=== PATIENT | male | born 1945 | race Caucasian/White ===

== ENCOUNTER → 2020-08-31 | Outpatient (CLI) | payer MEDICARE ==
[~2020-08-31] MED LIST: AMLO1TAB24 PO; GASTROGRAFIN SOLUTION 30ML (Q9963) As Ordered ONE; ISOVUE-370 76% 100ML VIAL As Ordered ONE; MELO15TA28 PO; MILK200C PO; RA M200C4 PO; RA T500C2 PO; SIMV10TA21 PO; SIMV20TA22 PO; VALS160T2 PO; VITA-122 PO
--- NOTE | 2020-08-31 17:47 | REP ---
INDICATION: LYMPHOMA. COMPARISON: Outside chest CT dated 03/15/2017. TECHNIQUE: Chest CT with IV contrast. FINDINGS: There are no lung nodules or masses. There are no infiltrates or pleural effusions. The lingular infiltrate identified on the comparison study has completely resolved. There is no mediastinal, hilar or axillary lymph node enlargement. The thoracic aorta is unremarkable. Cardiac size is normal. There is no pericardial effusion. There are no lytic, blastic or destructive skeletal changes. IMPRESSION: Essentially negative CT study of the chest. There is no adenopathy or mass. <Electronically signed by Apolinar Medrano > 08/31/20 [id number]
--- NOTE | 2020-08-31 18:27 | REP ---
INDICATION: LYMPHOMA. COMPARISON: Outside CT of the abdomen and pelvis with IV and oral contrast dated 01/25 2015. \ TECHNIQUE: The study is performed with IV contrast, contiguously with the chest CT this same date. FINDINGS: The hepatic parenchyma is homogeneous, unchanged. The gallbladder and pancreas are unremarkable and unchanged. The spleen is enlarged measuring 14 cm transverse diameter and is slightly larger than on the prior study. The spleen is homogeneous and otherwise unremarkable. The adrenals and kidneys are unremarkable. The abdominal aorta is unremarkable. There is no periaortic adenopathy or mass. There are multiple normal size mesenteric nodes in the abdomen in the right upper quadrant. These were also present previously. There also 2 enlarged doses in this age measuring 10 mm in diameter previously. They measure 8 mm in diameter today. There was another 10 mm node previously that measures 9 mm today. There are no enlarging lymph nodes. The bowel and mesentery are otherwise unremarkable. There is no ascites. Pelvis: The bladder and prostate are unremarkable. There is no pelvic adenopathy or ascites. The pelvic bowel loops are unremarkable. There are blastic appearing lesions in the sacrum, an posteriorly in the right iliac wing and in the L1 vertebral body. These were not present previously. There are stable foci of increased density in the posterior strut of the left acetabulum unchanged from the prior study, possibly bone islands. IMPRESSION: There is splenomegaly as described. The spleen is slightly larger than previously. There are multiple normal size mesenteric nodes in the abdominal right upper quadrant not significantly changed. In addition, on the prior study there are a few mildly enlarged mesenteric nodes in this area. All of these mildly enlarged nodes have decreased in size. There are skeletal blastic appearing lesions in the sacrum, posteriorly in the right iliac wing and in the L1 vertebral body as changes from the prior study. <Electronically signed by Apolinar Medrano > 08/31/20 [id number]
== END ==
LOC: M RAD 11:08
PROVIDERS: ATTEND Internal Medicine Hematology & Oncology
DX: C85.90 Non-Hodgkin lymphoma, unspecified, unspecified site (principal)
CPT/HCPCS: 71260; 74177; Q9963; Q9967

== ENCOUNTER → 2020-10-05 | Outpatient (CLI) | payer MEDICARE ==
[~2020-10-05] MED LIST changes: +D31000TA2 PO; -GASTROGRAFIN SOLUTION 30ML (Q9963) As Ordered ONE; -ISOVUE-370 76% 100ML VIAL As Ordered ONE
--- NOTE | 2020-10-05 14:56 | REP ---
INDICATION: LYMPHOMA ? BONE METS. COMPARISON: CT 08/31/2020. TECHNIQUE/RADIOTRACER AND DOSE: Following the intravenous administration of 22.0 mCi technetium 99 M MDP, patient's whole-body is imaged in various projections. FINDINGS: Periarticular uptake is seen at the shoulders bilaterally fairly symmetrical pattern as well as the sternoclavicular joints and hand. This is compatible with arthritic uptake at these locations. Increased uptake is seen in the right lateral femoral condyle and tibial plateau along the knee joint compatible with arthritic uptake. There is mild symmetrical uptake along the sacroiliac joints bilaterally, again likely representing arthritic uptake. There is no compelling scintigraphic evidence of osseous metastases. Renal and bladder activity are seen. IMPRESSION: Scattered arthritic uptake as discussed above. No compelling scintigraphic evidence of osseous metastases. <Electronically signed by Apolinar Jackman > 10/05/20 [id number]
== END ==
LOC: M RAD 10:30
PROVIDERS: ATTEND Internal Medicine Hematology & Oncology
DX: C85.90 Non-Hodgkin lymphoma, unspecified, unspecified site (principal); M15.9 Polyosteoarthritis, unspecified
CPT/HCPCS: 78306; A9503

== ENCOUNTER → 2020-11-09 | Outpatient (CLI) | payer MEDICARE ==
[~2020-11-09] MED LIST changes: +LIDOCAINE 1% MDV 20ML VIAL As Ordered ONE
[2020-11-09 12:06] VITALS: BP 179/84
--- NOTE | 2020-11-09 13:33 | REP ---
INDICATION: BLASTIC LESION RT POSTERIOR ILIAC WING. COMPARISON: None. TECHNIQUE: The procedure was performed under the direct supervision of Dr. Poole. The risks and benefits of the procedure were explained to the patient and informed consent was obtained. The right iliac wing was localized using CT guidance. The skin was prepped and draped in a sterile fashion. 1% lidocaine was used as a local anesthetic. Using CT guidance an 11 gauge bone biopsy needle system was inserted and 7 core biopsy samples were obtained and sent to the lab. The patient tolerated the procedure well and there were no immediate complications. After the appropriate amount to monitor convalescence the patient was discharged from the department. FINDINGS: None IMPRESSION: CT-guided right iliac wing bone biopsy. <Electronically signed by Christ Churchill > 11/09/20 1313 <Electronically signed by Abdiel Poole > 11/09/20 [id number]
== END ==
LOC: M IRPRO 11:50
PROVIDERS: ATTEND Internal Medicine Hematology & Oncology
DX: C86.4 Blastic NK-cell lymphoma (principal)

== ENCOUNTER 2025-09-22 13:53 | Outpatient (CLI) | payer MEDICARE ==
[~2025-09-22] VITALS: Ht 170.2 cm; Wt 90.9 kg
[~2025-09-22 13:53] MED LIST changes: +ALBUTEROL SULFATE 2.5 MG/0.5 ML INH CONCENTRATE NEB SOLN INH PRN; +ASPI81TA26 PO; +CO Q10CA PO; +CVS500CA5 PO; -D31000TA2 PO; +EPINEPHrine INJ 1 MG/ML 1ML AMP IM PRN; +FERR325T19; +FERR325T3 PO; +HYDR12.55; -LIDOCAINE 1% MDV 20ML VIAL As Ordered ONE; +LOSA100T46; +MELO7.5T35 PO; -RA T500C2 PO; +ROSU40TA81 PO; +TURM500C10 PO; +VITA100093 PO; +diphenhydrAMINE 50 MG/ML VIAL IV PRN
[2025-09-22] MEDS: ACETAMINOPHEN 650MG PO PRIOR TO INFUSION PO ONE (14:15)
[2025-09-22] MEDS: diphenhydrAMINE 25MG PO PRIOR TO INFUSION PO ONE (14:15)
[2025-09-22] MEDS: dexameTHASONE 20 MG IV PRIOR TO INFUSION IV ONE (14:16)
[2025-09-22] MEDS: IRON SUCROSE 200MG IVP IV ONE (14:16)
[2025-09-22 14:30] VITALS: BP 125/63; O2SAT 99
[2025-09-22 14:56] VITALS: BP 128/65; O2SAT 98
== END 2025-09-22 15:00 | disposition home or self-care (01) ==
LOC: M INFU 13:53
PROVIDERS: ATTEND Specialist
DX: D50.9 Iron deficiency anemia, unspecified (principal)
CPT/HCPCS: 96374; 96375; J1100; J1756